=== PATIENT | male | born 1980 ===

== ENCOUNTER → 2024-02-10 19:00 | Outpatient (BNV) | payer OTHER, SELFPAY | PROVIDERS: Visit Provider Internal Medicine | DX: G47.33 Obstructive sleep apnea (adult) (pediatric) (principal) | CPT/HCPCS: 95811 ==

== ENCOUNTER → 2024-02-10 19:30 | Outpatient (REF) | payer OTHER, SELFPAY | LOC: HO.SL 19:30 | PROVIDERS: Visit Provider Internal Medicine | DX: G47.33 Obstructive sleep apnea (adult) (pediatric) (principal); R06.83 Snoring | CPT/HCPCS: 95811 ==

== ENCOUNTER 2024-09-05 10:53 | Outpatient (REF) | payer OTHER, SELFPAY ==
[2024-09-05 13:50] LABS: Estimated Average Glucose 126 mg/dL; Hemoglobin A1C 164.1083 umol/L; Total Hemoglobin (HGBA1C) 3951.1929 umol/L
[2024-09-05 13:54] LABS: Alanine Aminotransferase 81 U/L (0-40); Albumin Level 4.5 g/dL (3.5-5.0); Alkaline Phosphatase 62 U/L (39-117); Anion Gap 15 (12-20); Aspartate Amino Transferase 45 U/L (5-37); Bilirubin Total 0.9 mg/dL (0.0-1.0); Blood Urea Nitrogen 16 mg/dL (9-16); Calcium 10.1 mg/dL (8.4-10.2); Carbon Dioxide 25 mmol/L (22-29); Chloride 105 mmol/L (96-108); Cholesterol 187 mg/dL (<200); Estimated Glomerular Filt Rate > 60; Glucose Random 105 mg/dL (60-115); HDL Cholesterol 30 mg/dL (>40); LDL Cholesterol Calculated 88 mg/dL (<100); Potassium 3.6 mmol/L (3.3-5.1); Sodium 141 mmol/L (135-145); TSH reflex Free T4 1.03 uIU/mL (0.32-4.0); Total Protein 7.3 g/dL (6.5-8.0); Triglycerides 345 mg/dL (<150)
== END 2024-09-05 10:54 | disposition home or self-care (01) ==
LOC: HO.HHCL 10:53
PROVIDERS: Visit Provider Internal Medicine
DX: E66.01 Morbid (severe) obesity due to excess calories (principal); E66.813 Obesity, class 3; Z68.41 Body mass index [BMI] 40.0-44.9, adult; Z13.1 Encounter for screening for diabetes mellitus
CPT/HCPCS: 36415; 80053; 80061; 83036; 84443

== ENCOUNTER 2025-04-12 12:24 | Outpatient (REF) | payer SELFPAY | END 2025-04-12 12:25 | disposition home or self-care (01) | LOC: HO.HHCLNP 12:24 | PROVIDERS: Visit Provider Family Medicine | DX: L02.31 Cutaneous abscess of buttock (principal) | CPT/HCPCS: 87070; 87205 ==